=== PATIENT | female | born 1930 | race Caucasian/White ===

== ENCOUNTER 2017-07-08 11:41 | Emergency (ER) | payer OTHER ==
[~2017-07-08] VITALS: Ht 154.9 cm; Wt 66.7 kg
--- NOTE | ~2017-07-08 | EKG ---
[address] [place] [address] ELECTROCARDIOGRAM REPORT Name: MARIAJOSEJOHANNABERTOJOSUE Clemencia Room #: REG [facility]#: [id number] Admission: 07/08/17 Attend Phys: Discharge: Date of : 30 Report #: [id number] THIS REPORT FOR: //name// [facility] ED Test Date: 2017-07-08 Test Time: 11:49:49 Pat Name: JOSUE PEDERSEN Department: Room: Gender: F Zig Zag Stitcher: NATASHA : 1930 Requested By: Tomasa Esetban Order Number: [id number] MD: Chintan Franz Measurements Intervals [place] Rate: 105 P: 60 HI: 186 QRS: 10 QRSD: 95 T: 63 QT: 347 QTc: 459 Interpretive Statements Sinus tachycardia Left atrial enlargement Compared to ECG 06/06/2010 12:21:10 Atrial abnormality now present Sinus rhythm no longer present Myocardial infarct finding no longer present Electronically Signed On 07-08-2017 12:58:32 PORTABLE SAWMILL OPERATOR by Chintan Franz [email or web address] <ELECTRONICALLY SIGNED> By: Chintan Franz MD 07/08/17 1258 1149 1149 Chintan Franz MD /RICK
[~2017-07-08 11:41] MED LIST: ACETAMINOPHEN325 MG PO; ADULT LOW DOSE81 MG PO; ARANESP SC; BAYER BACK & BODY PO; BAYER PLUS 500500 MG PO; CALCIUM ACETAT667 M2 PO; CIPRO250 M1 PO; EPOGEN2000 UNIT/ IJ; HYDROCODON-ACE1 EAC1 PO; KEFLEX500 MG PO; L-THYROXINE PO; LIDOCAINE 4% K1 EACH TP; LIPITOR10 MG PO; LIPITOR20 MG PO; LIPITOR40 MG PO; MAG DELAY64 MG PO; MEGESTROL; MOTION SICKNESS25 M1 PO; NEPHROCAPS SOFT1 CAP PO; NORCO 5-325 TA1 EACH PO; RENAL SOFTGEL1 MG PO; RENALTAB ZN PO; REQUIP0.5 MG PO; SIMVASTATIN20 MG PO; SYNTHROID150 MCG PO; TUMS CHEWA500 MG/11 PO; VITAMIN E400 UNI6 PO; ZYRTEC 10 MG TA10 MG PO; [UNRECOGNIZED DRUG - OTHER]; [UNRECOGNIZED DRUG - OTHER] PO
[2017-07-08 12:33] LABS: HEMOGLOBIN 12.8 gm/dL (12.0-15.0); MCH 32.1 pg (26.0-34.0); MCHC 34.5 g/dL (28.0-37.0); MCV 93.2 fL (80.0-100.0); PLATELET COUNT 245 thou/uL (150-400); RBC 3.97 mil/uL (4.20-5.00); RDW 13.6 % (10.5-14.5); WBC 6.8 thou/uL (4.0-11.0)
[2017-07-08 12:43] LABS: CALCIUM 9.5 mg/dL (8.5-10.1); CREATININE 3.9 mg/dL (0.6-1.0)
[2017-07-08 12:44] LABS: TROPONIN-I 0.07 ng/mL (<0.06)
[2017-07-08 12:50] LABS: ABSOLUTE NEUTROPHILS 5.5 thou/uL (1.4-8.2); PLATELET ESTIMATE NORMAL
[2017-07-08] MEDS ORDERED: ROBITUSSIN100 MG/53 PO (14:25)
[2017-07-08] MEDS ORDERED: PROAIR RESPICL90 MCG INH (14:25)
[2017-07-08] MEDS ORDERED: TESSALON PERLE100 MG PO (14:25)
[2017-07-08 15:15] VITALS: BP 136/74
== END 2017-07-08 15:15 | disposition home or self-care (01) ==
LOC: ER 11:41
PROVIDERS: Emergency Medicine
DX: J06.9 Acute upper respiratory infection, unspecified (principal); E11.22 Type 2 diabetes mellitus with diabetic chronic kidney disease; N18.6 End stage renal disease; E78.5 Hyperlipidemia, unspecified; E03.9 Hypothyroidism, unspecified; N30.10 Interstitial cystitis (chronic) without hematuria; G25.81 Restless legs syndrome; Z99.2 Dependence on renal dialysis; Z90.49 Acquired absence of other specified parts of digestive tract; Z90.89 Acquired absence of other organs; Z86.718 Personal history of other venous thrombosis and embolism; Z86.711 Personal history of pulmonary embolism; Z96.652 Presence of left artificial knee joint

== ENCOUNTER → 2019-05-18 | Outpatient (CLI) | payer OTHER ==
[~2019-05-18] MED LIST changes: +PROAIR RESPICL90 MCG INH; +ROBITUSSIN100 MG/53 PO; +TESSALON PERLE100 MG PO
== END ==
LOC: RAD 09:52
DX: M18.11 Unilateral primary osteoarthritis of first carpometacarpal joint, right hand (principal); M25.831 Other specified joint disorders, right wrist; M11.231 Other chondrocalcinosis, right wrist; I70.0 Atherosclerosis of aorta

== ENCOUNTER 2019-09-21 20:23 | Inpatient (IN) | payer OTHER ==
[~2019-09-21] VITALS: Ht 152.4 cm; Wt 49.9 kg
--- NOTE | ~2019-09-21 | HC ---
[facility] [address] [place] [address] CONSULTATION Name: JOSUE PRECIADO Room #: 215-P ADM IN M.R.#: [id number] Admission: 09/21/19 Attend Phys: Mikey Sánchez MD Discharge: Date of : 30 Report #: [id number] THIS REPORT FOR: cc: Aldo Chaney MD,Sweta Sharma MD, MD ~ CC: Mikey Chaney REASON FOR CONSULTATION: End-stage renal disease. REASON FOR THE PRESENTATION: Chest pain. HISTORY OF PRESENT ILLNESS: This is a very well-known patient to me. She is an 88-year-old end-stage renal disease with advanced dementia. She is maintained on hemodialysis every Saturday, Saturday and Saturday. She presented to the Emergency Room that she has been having chest pain ever since she was on dialysis yesterday. She had major issues with the chest pain even after she went home. Her neighbor was with her and they decided to bring her to the Emergency Room. Vitals were stable, but the patient almost collapsed in the triage and was admitted to be further evaluated. She has all known risk factors for coronary artery disease. She is also known to have diabetes mellitus, DVT and pulmonary embolism in the past. She was reporting some mild chest pain when I saw her this morning. She denies any nausea or vomiting. She denies any prior similar episodes. She is not really sure about the details of her dialysis treatment yesterday. I am being consulted to manage her end-stage renal disease. PAST MEDICAL HISTORY: 1. End-stage renal disease, maintained on hemodialysis. 2. Diabetes mellitus. 3. Hyperlipidemia. 4. Hypothyroidism. 5. Post-AV fistula. 6. Appendectomy. 7. Cholecystectomy. 8. Right breast mass excision. 9. Carotid endarterectomy. 10. Tonsillectomy. 11. Multiple cystoscopies for obstructive uropathy in the past. 12. Pulmonary embolism. 13. Deep venous thrombosis. 14. Left knee replacement. 15. History of peptic ulcer disease. CURRENT HOME MEDICATIONS: 1. Carvedilol. [facility] [address] [place] [address] CONSULTATION Name: JOSUE PRECIADO Room #: 215-P [facility] IN ..#: [id number] Admission: 09/21/19 Attend Phys: Mikey Sánchez MD Discharge: Date of : 30 Report #: [id number] 2. Tramadol. 3. Plavix. ALLERGIES: None. SOCIAL HISTORY: No reported drug or alcohol abuse. REVIEW OF SYSTEMS: CONSTITUTIONAL: Significant for weakness. CARDIOVASCULAR: As per the history of present illness. PULMONARY: No cough or hemoptysis. GASTROINTESTINAL: No nausea or vomiting. GENITOURINARY: She is anuric. MUSCULOSKELETAL: Usual aches and pains for the patient in her age. NEUROLOGICAL: Occasional headaches. PHYSICAL EXAMINATION: GENERAL: The patient was alert, oriented, in no apparent distress when I evaluated her this morning. VITAL SIGNS: Pulse ox was 96, blood pressure was 118/46. Temperature was 36.4, pulse rate was 69. HEAD AND NECK: No jugular venous distention. CHEST: No crackles. CARDIOVASCULAR: No rub detected. ABDOMEN: Soft and nontender. LOWER EXTREMITIES: No edema. LABORATORY DATA: Reviewed. Sodium 130, chloride 95, carbon dioxide 33, BUN 13, creatinine 3.2. White blood cell count is 9.3. Troponins are negative. TSH was significantly elevated at 28.1. Chest x-ray with no acute abnormality. ASSESSMENT, IMPRESSION AND PLAN: 1. End-stage renal disease. 2. Chest pain of unknown source being ruled out for an acute coronary syndrome. 3. Near syncope. 4. Low blood pressure, likely related to aggressive ultrafiltration and decreased oral intake. 5. Uncontrolled thyroid issues. 6. Diabetes mellitus. 7. Advanced dementia. 8. History of deep venous thrombosis and pulmonary embolism. 9. We will arrange for the patient to have her usual hemodialysis every Saturday, Saturday and Saturday. 10. Endocrinology consultation regarding her thyroid issues and diabetes mellitus. 11. Dementia with poor social support and I seriously doubt that the patient is [address] [place] [address] CONSULTATION Name: JOSUE PRECIADO Room #: 215-P [facility] IN M.R.#: [id number] Admission: 09/21/19 Attend Phys: Mikey Sánchez MD Discharge: Date of : 30 Report #: [id number] taking any of her medications and she will need Social Work consultations. 12. Cardiology is following regarding her chest pain. I would rather be on the conservative side given her advanced dementia and comorbid conditions. By: [phone] Sweta Ho MD /nt
[2019-09-21 20:24] VITALS: BP 118/46
[2019-09-21 20:44] LABS: ABSOLUTE NEUTROPHILS 7.4 thou/uL (1.4-8.2); EOSINOPHILS 1.1 % (0.0-3.0); HEMOGLOBIN 11.2 gm/dL (12.0-15.0); LYMPHOCYTES 9.1 % (24.0-44.0); MCH 27.5 pg (26.0-34.0); MCHC 32.1 g/dL (28.0-37.0); MCV 85.5 fL (80.0-100.0); MONOCYTES 8.9 % (1.0-8.0); PLATELET COUNT 420 thou/uL (150-400); POLYS 79.9 % (36.0-66.0); RBC 4.09 mil/uL (4.20-5.00); RDW 18.9 % (10.5-14.5); WBC 9.3 thou/uL (4.0-11.0)
[2019-09-21] MEDS ORDERED: CARVEDILOL12.5 MG PO (20:54)
[2019-09-21] MEDS ORDERED: TRAMADOL 50 MG50 MG PO (20:55)
[2019-09-21] MEDS ORDERED: PLAVIX 75 MG TA75 MG PO (20:56)
[2019-09-21 20:59] LABS: ANION GAP 4 mmol/L (7-16); BUN 13 mg/dL (7-18); CHLORIDE 95 mmol/L (98-107); CO2 33 mmol/L (21-32); CREATININE 3.2 mg/dL (0.6-1.0); GLUCOSE 130 mg/dL (74-106); POTASSIUM 3.6 mmol/L (3.5-5.1); SODIUM 132 mmol/L (136-145)
[2019-09-21 21:00] LABS: TROPONIN-I <0.06 ng/mL (<0.06)
[2019-09-21] MEDS ORDERED: PERCOCET 5-3251 EACH PO (21:00)
[2019-09-22] VITALS (8 sets, daily range): BP systolic 114–155; BP diastolic 35–57
[2019-09-22] MEDS ORDERED: ZOCOR 20 MG TAB20 M1 PO (01:13)
[2019-09-22] MEDS ORDERED: SYNTHROID200 MCG PO (04:09)
[2019-09-22 05:00] LABS: CHOLESTEROL 154 mg/dL (<200); HDL CHOLESTEROL 48 mg/dL (>40); LDL CHOLESTEROL 84 mg/dL (<100); TC:HDL 3.2 Ratio (Not establshd); TRIGLYCERIDE 114 mg/dL (<150); VLDL 23 mg/dL (<40)
[2019-09-22 05:01] LABS: SERUM ASSESSMENT Clear
--- NOTE | 2019-09-22 05:49 | NUR ---
RECEIVED REPORT FROM [facility] ED RN.PATIENT ARRIVED TO ROOM 215 AROUND 0100 AM.PATIENT A/O X 4.DENIES PAIN AND SOB.PATIENT CLAIMED THAT SHE MOVES AROUND AT HOME WITH A WALKER.PATIENT IS OLIGURIC.NECROTIC TOE NOTED ON HER LEFT FOOT.PICTURE IN THE CHART.MONITOR SHOWS SINUS RHYTHM.POC CONTINUED.
--- NOTE | 2019-09-22 08:19 | NUR ---
ASSESSMENT: CM REVIEWED CHART AND MET WITH PATIENT AT THE BEDSIDE. PT LIVES AT HER HOME AND HER TERE RIOS IS CURRENTLY STAYING WITH HER. PT REPORTS SHE HAS 1-2 STEPS TO ENTER THE HOME. PT REPORTS THAT SHE AMBULATES AT TIMES USING HER CANE AND OTHER TIMES USING HER WALKER. PT REPORTS SHE IS VERY INDEPENDENT FOR HER AGE. PT IS INDEPENDENT WITH ADLS. PT STATES SHE GOES TO [facility] M[facility] 0530AM CHAIR TIME. CM CONTACTED [facility] TO NOTIFY THEM. THEY REQUEST D/C PAPERWORK AND FLOWSHEETS BE FAXED TO THEM AT [phone] AT DISCHARGE. CM SPOKE WITH BLANCA CARRANZA AND SHE REPORTS THAT PATIENT NORMALLY DRIVES HERSELF TO AND FROM DIALYSIS. PT HAS HAD HH IN THE PAST BUT BLANCA STATES THEY DISCHARGE HER BECAUSE SHE DOES NOT STAY HOME. CM DISCUSSED ROLE. PT DOES NOT ANTICIPATE HAVING ANY NEEDS AT DISCHARGE. CM WILL CONTINUE TO FOLLOW TO ASSIST NEEDED.
--- NOTE | 2019-09-22 08:53 | EKG ---
[facility] [address] [address] ELECTROCARDIOGRAM REPORT Name: JOSUE PRECIADO Room #: 215-P ADM IN M.R.#: [id number] Admission: 09/21/19 Attend Phys: Mikey Sánchez MD Discharge: Date of : 30 Report #: [id number] THIS REPORT FOR: cc: Aldo Chaney MD, Michael B. MD Lundgren,Roman Mendez MD [facility] ~ THIS REPORT FOR: //name// [facility] ED Test Date: 2019-09-21 Test Time: 20:29:35 Pat Name: JOSUE PRECIADO Department: Room: 215 Gender: F Grinder Setup Operator: : 1930 Requested By: Pineda Amanda Order Number: [id number] MD: Roman Lee Measurements Intervals [place] Rate: 62 P: 58 VA: 165 QRS: 4 QRSD: 100 T: 84 QT: 440 QTc: 447 Interpretive Statements Sinus rhythm Poor R wave progression Compared to ECG 07/08/2017 11:49:49 Sinus tachycardia no longer present Electronically Signed On 09-22-2019 8:51:53 CDT by Romna Lee [email or web address] <ELECTRONICALLY SIGNED> By: Roman Lee MD, [facility] 09/22/19 0851 28 28 Roman Lee MD, [facility] /EPI
--- NOTE | 2019-09-22 08:58 | EKG ---
[facility] [address] [address] ELECTROCARDIOGRAM REPORT Name: JOSUE PRECIADO Room #: 215-P ADM IN M.R.#: [id number] Admission: 09/21/19 Attend Phys: Mikey Sánchez MD Discharge: Date of : 30 Report #: [id number] THIS REPORT FOR: cc: Aldo Chaney MD, Michael B. MD Lundgren,Roman Mendez MD [facility] THIS REPORT FOR: //name// [facility] Test Date: 2019-09-22 Test Time: 08:14:11 Pat Name: JOSUE PRECIADO Department: Room: 215 P Gender: F Bleach Analyst: Pierre AGOSTO : 1930 Requested By: Yanelis Yee Order Number: [id number] MD: Roman Lee Measurements Intervals [place] Rate: 60 P: 75 WV: 173 QRS: 15 QRSD: 92 T: 85 QT: 437 QTc: 437 Interpretive Statements Sinus rhythm No significant abnormality Compared to ECG 07/08/2017 11:49:49 No significant changes Electronically Signed On 09-22-2019 8:57:30 CDT by Roman Lee [email or web address] <ELECTRONICALLY SIGNED> By: Roman Lee MD, FACC 09/22/19 0857 3 3 Roman Lee MD, [facility] /EPI
--- NOTE | 2019-09-22 11:00 | 2DMMODE ---
[facility] [place] [address] 2 D/M-MODE ECHOCARDIOGRAM Name: JOSUE PRECIADO Room #: 215-P ADM IN M.R.#: [id number] Admission: 09/21/19 Attend Phys: Mikey Sánchez MD Discharge: Date of : 30 Report #: [id number] THIS REPORT FOR: cc: Aldo Chaney MD, Michael B. MD Lundgren, Craig H. MD [facility] ~ APPROVED REPORT Study performed: 09/22/2019 09:16:31 EXAM: Comprehensive 2D, Doppler, and color-flow Echocardiogram Patient Location: Bedside Room #: 215 Status: routine BSA: 1.45 HR: 63 bpm BP: 115/35 mmHg Rhythm: NSR Other Information Study Quality: Good Indications Aortic Valve Disease Mitral Valve Disease Diabetes Chest Pain Hypertension/HDD 2D Dimensions RVDd: 32.49 mm IVSd: 12.78 (7-11mm) LVOT Diam: 17.94 (18-24mm) LVDd: 37.58 mm PWd: 12.61 (7-11mm) Ascending Ao: 25.36 (22-36mm) LVDs: 26.39 (25-40mm) Aortic Root: 24.85 mm IVC: 17.00 mm Volumes Left Atrial Volume (Systole) Single Plane 4CH: 156.29 mL Single Plane 2CH: 135.41 mL LA ESV Index: 110.00 mL/m2 Aortic Valve AoV Peak Matty.: 2.67 m/s [facility] [address] [place] [address] 2 D/M-MODE ECHOCARDIOGRAM Name: JOSUE PRECIADO Room #: 215-P [facility] IN ..#: [id number] Admission: 09/21/19 Attend Phys: Loulou Eubanks Discharge: Date of : 30 Report #: [id number] Peak Gr.: 28.54 mmHg LVOT Max P.26 mmHg AO Mean Gr.: 16.10 mmHg LVOT Mean P.29 mmHg AO V2 Mean: 1.93 m/s LVOT Max V: 1.15 m/s AO V2 VTI: 66.89 cm LVOT Mean V: 0.85 m/s TONYA (VTI): 1.23 cm2 LVOT V1 VTI: 32.50 cm TONYA Vmax: 1.08 cm2 SV (LVOT): 82.11 mL Mitral Valve MV Peak Gr.: 26.67 mmHg MV Mean Gr.: 13.39 mmHg E/A Ratio: 1.1 MV Decel. Time: 644.52 ms MV E Max Matty.: 2.32 m/s MV A Matty.: 2.06 m/s MV Max Matty.: 2.58 m/s MV Mean Matty.: 1.76 m/s MV VTI: 1007.39 mm MVA VTI: 81.51 mm2 MV PHT: 186.91 ms MVA (PHT): 1.43 cm2 IVRT: 106.11 ms Pulmonary Valve PV Peak Matty.: 1.01 m/s PV Peak Gr.: 4.10 mmHg Tricuspid Valve TR Peak Matty.: 3.35 m/s TR Peak Gr.: 44.86 mmHg PA Pressure: 55.00 mmHg Left Ventricle The left ventricle is normal size. There is normal LV segmental wall motion. Mild concentric left ventricular hypertrophy. Left ventricular systolic function is hyperdynamic. LVEF is 65-70%. The left ventricular diastolic function is abnormal. Right Ventricle The right ventricle is normal size. The right ventricular systolic function is normal. Atria Left atrium is dilated. Right atrium is dilated. Aortic Valve Aortic valve is calcified. No aortic regurgitation is present. Moderate aortic stenosis. Calculated aortic valve area is 1.1 cm2 [place] [address] 2 D/M-MODE ECHOCARDIOGRAM Name: JOSUE PRECIADO Room #: 215-P [facility] IN [facility]#: [id number] Admission: 09/21/19 Attend Phys: Loulou Eubanks Discharge: Date of : 30 Report #: [id number] with maximum pressure gradient of 29 mmHg and mean pressure gradient of 15 mmHg. Mitral Valve There is mitral annular calcification. Mitral valve leaflets are calcified. Mitral valve leaflets have restricted excursion. Mild mitral regurgitation. Severe mitral stenosis. Calculated mitral valve area is 1.0 cm2 with maximum pressure gradient of 30 mmHg and mean pressure gradient of 15 mmHg. Tricuspid Valve The tricuspid valve is normal in structure. There is mild tricuspid regurgitation. Estimated PAP 50 mmHg. There is moderate pulmonary hypertension. Pulmonic Valve The pulmonary valve is normal in structure. There is no pulmonic valvular regurgitation. Great Vessels The aortic root is normal in size. IVC is normal in size and collapses <50% with inspiration. Pericardium There is no pericardial effusion. <Conclusion> Left ventricular systolic function is hyperdynamic. There is normal LV segmental wall motion. LVEF is 65-70%. Left atrium is dilated. Aortic valve is calcified. Moderate aortic stenosis. Calculated aortic valve area is 1.1 cm2 with maximum pressure gradient of 29 mmHg and mean pressure gradient of 15 mmHg. There is mitral annular calcification. Mitral valve leaflets are calcified with restricted excursion. Severe mitral stenosis. Calculated mitral valve area is 1.0 cm2 with maximum pressure gradient of 30 mmHg and mean pressure gradient of 15 mmHg. There is mild tricuspid regurgitation. Estimated pulmonary artery pressure of 50 mmHg. There is no pericardial effusion. <ELECTRONICALLY SIGNED> By: Roman Lee MD, FACC 09/22/19 1058 1058 1058 Roman Lee MD, FACC /INF
--- NOTE | 2019-09-22 18:03 | NUR ---
Assumed pt care at 11am.Pt up in chair resting without c/o.Assessment completed.vss but dbp low at dinner time and coreg held.Assisted pt with tray setup at all meals.Fair appetite noted.Pt will dialyzed in am.No verbal c/o. Will continue to monitor.
[2019-09-23 00:07] LABS: GLYCOHEMOGLOBIN (HGB A1C) 5.1 % (4.8-5.6)
[2019-09-23 04:45] VITALS: BP 152/52
[2019-09-23 06:33] LABS: ANION GAP 7 mmol/L (7-16); BUN 28 mg/dL (7-18); CALCIUM 8.3 mg/dL (8.5-10.1); CHLORIDE 95 mmol/L (98-107); CO2 31 mmol/L (21-32); GLUCOSE 71 mg/dL (74-106); POTASSIUM 3.4 mmol/L (3.5-5.1); SODIUM 133 mmol/L (136-145); TROPONIN-I <0.06 ng/mL (<0.06)
[2019-09-23 06:37] LABS: CREATININE 4.9 mg/dL (0.6-1.0)
--- NOTE | 2019-09-23 06:45 | HC ---
[facility] [address] [place] [address] CONSULTATION Name: JOSUE PRECIADO Room #: 215-P ADM IN M.R.#: [id number] Admission: 09/21/19 Attend Phys: Mikey Sánchez MD Discharge: Date of : 30 Report #: [id number] THIS REPORT FOR: cc: Aldo Chaney MD,Maximilian Stout MD, MD ~ CC: Mikey Chaney DATE OF SERVICE: 09/22/2019 ENDOCRINE CONSULTATION NOTE CONSULTING PHYSICIAN: Dr. Kim. REASON FOR CONSULTATION: Severe hypothyroidism. HISTORY OF PRESENT ILLNESS: This is an 88-year-old female patient whose medical background is significant for multiple medical issues including longstanding hypothyroidism, type 2 diabetes mellitus, hypertension, hyperlipidemia, end-stage renal disease requiring hemodialysis as well as advanced dementia. The patient was admitted yesterday with complaints of chest pain that seemed to have progressed fast prior to admission. Subsequently, the patient was admitted for further care and monitoring. Again, the patient is known to have hypothyroidism and when questioned about that, she indicated that she has been for many years and that she is maintained on levothyroxine that she takes daily. She was not able to specify the dose, but her records show that she is supposed to be on levothyroxine 150 mcg daily. The patient indicated that there were a lot of inconsistencies in her medication intake over the past few months and that she believes her levothyroxine medicine was not being taking consistently. She has felt fatigued and tired lately, but was not particularly somnolent and has not noted significant body weight changes. The patient's records indicate that she has type 2 diabetes mellitus, but she denies that and having reviewed her outpatient medications and does not appear that she is on any known antidiabetic agents. The patient is known to have hypertension and is maintained on carvedilol 12.5 mg b.i.d. She is also hyperlipidemic and is maintained on simvastatin 20 mg at bedtime. REVIEW OF SYSTEMS: CONSTITUTIONAL: Fatigue, tiredness, but no fever or chills or significant body weight changes. HEENT: Negative for sore throat, sinus pain, ear drainage. PULMONARY: Negative for cough or hemoptysis. Noted for occasional dyspnea on [facility] [address] [address] CONSULTATION Name: JOSUE PRECIADO Room #: 215-P [facility] IN ..#: [id number] Admission: 09/21/19 Attend Phys: Mikey Sánchez MD Discharge: Date of : 30 Report #: [id number] exertion or shortness of breath. GASTROINTESTINAL: Occasional abdominal discomfort, distention, nausea, but no vomiting. NEUROLOGY: Negative for loss of consciousness, severe frequent headaches or peripheral numbness. PSYCHIATRIC: Baseline dementia. Negative for hallucinations, delusions. Otherwise, review of systems noncontributory other than those mentioned in HPI. PAST MEDICAL HISTORY: 1. Hypothyroidism. 2. End-stage renal disease, on hemodialysis 3 times a week. She has been on dialysis for several years. 3. Diet-controlled type 2 diabetes mellitus. 4. Dyslipidemia. 5. Chronic interstitial cystitis. 6. Carotid arterial disease. 7. History of DVT in the left leg in 2003. 8. History of PE in 2002. 9. Restless leg syndrome. 10. Osteoarthritis. 11. Cataracts. 12. Peptic ulcer disease. PAST SURGICAL HISTORY: Noted for: 1. Tonsillectomy. 2. Carotid endarterectomies bilaterally. 3. AV fistula placement in the right upper extremity. 4. Left knee replacement. 5. Cataract surgery. 6. Eye laser surgery. OUTPATIENT MEDICATIONS: Include: 1. Simvastatin 20 mg daily. 2. Carvedilol 12.5 mg b.i.d. 3. Tramadol ____ mg q.6 hours p.r.n. 4. Plavix 75 mg daily. 5. Percocet 5/325 mg tablet b.i.d. p.r.n. 6. Zyrtec 10 mg daily. 7. Meclizine 25 mg p.r.n. motion sickness. 8. Simvastatin 20 mg at bedtime. 9. ReQuip 0.5 mg at bedtime. 10. Levothyroxine 150 mcg daily. 11. Calcium acetate 667 mg daily. ALLERGIES: No known drug allergies. [address] [address] CONSULTATION Name: JOSUE PRECIADO Room #: 215-P [facility] IN M.R.#: [id number] Admission: 09/21/19 Attend Phys: Mikey Sánchez MD Discharge: Date of : 30 Report #: [id number] FAMILY HISTORY: Noncontributory. SOCIAL HISTORY: The patient denies use of tobacco, alcohol or illicit drugs. She lives by herself and her niece visits with her closely. PHYSICAL EXAMINATION: GENERAL: Pleasant female patient who is not in apparent pain or distress. She is sitting upright in her reclining chair, seeming comfortable, not in apparent distress. VITAL SIGNS: Blood pressure is 114/37 mmHg, heart rate is 58 beats per minute, respirations 15 per minute, temperature 36.3 degrees. CONSTITUTIONAL: The patient is sitting upright, appears comfortable, not in apparent distress. HEENT: Anicteric sclerae. Intact extraocular motions. NECK: Supple, no JVD, no thyromegaly. CHEST: Noted for moderate air entry bilaterally with scattered rales. No wheezes or crackles. HEART: Regular rate and rhythm without murmurs or gallops. ABDOMEN: Soft, lax. No guarding. Active bowel sounds. EXTREMITIES: Lower extremity exam is noted for trace ankle edema, necrotic changes are noted over the second left toe. Pedal pulses are not appreciated. Sensation to light touch is moderately diminished. NEUROLOGIC: Awake, alert and oriented to time, place and person. The remainder of her examination is nonfocal other than for sensory deficits over the lower extremities. PSYCHIATRIC: Pleasant, interactive. Normal mood and affect. LABORATORY RESULTS: Blood glucose on arrival was 65, went to 106 and then 103 mg/dL. Otherwise, sodium 132, potassium 3.6, chloride 95, CO2 of 33, anion gap 4. BUN 13, creatinine 3.2. She has been as high as 9.9 in 2009. AST 18, total bilirubin 0.2, calcium 9.0, phosphorus 3.7, magnesium 2.1, alkaline phosphatase 104, ALT 19, total protein 6.8, albumin 2.7, EGFR 14. Troponin negative. Total cholesterol 154, triglycerides 114, HDL 48, LDL 84. White blood count 9.3, hemoglobin 11.2, hematocrit 35, platelets 420. Hemoglobin A1c is pending. TSH is 28.178. ASSESSMENT AND PLAN: 1. Hypothyroidism. This is a longstanding issue. The patient admittedly has had significant therapeutic gaps over the past few months. This complicates the mission of better identifying her specific therapeutic needs. I would like to get a free T4 level to better assess her current standing and her specific therapeutic needs. Moreover, I would adopt caution while approaching this patient and the sense of introducing a low dose of levothyroxine requirements that can be adjusted slowly to her needs going forward. That said, and given her low body mass, I would start with 100 mcg daily while we await the free T4 levels. I noted that she had already received 1 bolus of intravenous [facility] [address] [place] [address] CONSULTATION Name: JOSUE PRECIADO Room #: 215-[facility] IN ..#: [id number] Admission: 09/21/19 Attend Phys: Mikey Sánchez MD Discharge: Date of : 30 Report #: [id number] levothyroxine of 200 mcg one time earlier today. This should be plenty for a loading dose. The patient was counseled about the importance of sustaining a consistent intake of levothyroxine and periodically monitoring her levels to ensure the best outcome possible which she seemed to understand well. 2. Type 2 diabetes mellitus. The patient is reported to have type 2 diabetes mellitus that is diet controlled. She is not currently on active antidiabetic therapy. Blood glucose values during her hospital stay have so far been under good control. Hemoglobin A1c has been ordered and is pending or should assist in developing a better understanding of her overall level of control as of recently. 3. Hypertension. The patient's level of blood pressure control is adequate. She is to continue the same regimen. 4. Hyperlipidemia. The patient is maintained on simvastatin therapy in the outpatient setting. I will defer the resumption of this regimen to her primary medicine team once she is deemed clinically stable. I have reviewed the clinical care notes, laboratory data, outpatient clinical records, and other pertinent information to this patient's care for over 35 minutes. I appreciate this consultation by Dr. Kim. <ELECTRONICALLY SIGNED> By: Maximilian Garcia MD 09/23/19 0645 1400 1512 Maximilian Garcia MD /nt
[2019-09-23 08:02] VITALS: BP 129/50
--- NOTE | 2019-09-23 08:44 | NUR ---
ASSESSMENT CHARTED, MEDS GIVEN CHARTED. PATIENT SITTING IN CHAIR DURING START OF SHIFT, TRANSFERED TO BED DURING SHIFT. C/O PAIN IN LEFT FOOT PRIMARILY THE SECOND TOE WHICH IS SCHEDULED FOR AMPUTATION ON 09/28 OUT PATIENT. PATIENT DID NOT WANT TYLENOL FOR PAIN BUT REQUESTED NAPROXEN. PATIENT IS SCHEDULED FOR 4 HOURS OF DIALYSIS THIS MORNING THEN CONSULT FOR ENDOCRINE DUE TO THYROID LEVELS. FALL PRECAUTIONS IN PLACE.
[2019-09-23] MEDS ORDERED: TRAMADOL 50 MG50 MG PO (11:39)
[2019-09-23 12:04] VITALS: BP 129/50
[2019-09-23] MEDS ORDERED: SYNTHROID100 MC1 PO (12:39)
--- NOTE | 2019-09-23 13:16 | NUR ---
on-going assessment: PT HAS ORDERS TO DISCHARGE HOME WITH HH TODAY AFTER DIALYSIS. JAVI SPOKE WITH PATIENTS TERE RIOS WHO SHE LIVES WITH AND REFERRAL WAS SENT TO [facility]. [facility] STATES THEY CAN ACCEPT PATIENT AND JUST NEED DISCHARGE ORDERS. JAVI SPOKE WITH AUTHORIZATION REPRESENTATIVE WHO IS GOING TO SEND THE ORDERS. JAVI NOTIFIED JULIA DE LEON OF DISCHARGE TODAY.
--- NOTE | 2019-09-23 13:19 | NUR ---
PT DISCHARGING TODAY TO HOME WITH [facility] SPOKE WITH LUDWIG IN INTAKE SHE RECEIVED ORDERS AND WILL NOTIFY PT TIME OF VISITS.
--- NOTE | 2019-09-23 15:42 | NUR ---
ASSESSMENT CHARTED. PT ALERT AND ORIENTED. HAD DIALYSIS THIS AM. ORDERS NGIVEN TO DISCHARGE PT TO HOME WITH HH. DISCHARGE INSTRUCTIONS GIVEN TO PT. PT VERBERLISED UNDERSTANDING. PT LEFT THE FACILITY ACCOMPANIED BY THE NIECE.
== END 2019-09-23 15:45 | disposition short-term general hospital (02) | DRG 306 ==
LOC: ER 20:23 → EROBS 23:25 → 2N 23:25
PROVIDERS: Emergency Medicine; Nurse Practitioner Family; ADMIT Hospitalist
PROC: 5A1D70Z Performance of Urinary Filtration, Intermittent, Less than 6 Hours Per Day (ICD-10-PCS; principal; 2019-09-23)
DX: I05.0 Rheumatic mitral stenosis (principal); N18.6 End stage renal disease; I96 Gangrene, not elsewhere classified; E87.1 Hypo-osmolality and hyponatremia; E11.52 Type 2 diabetes mellitus with diabetic peripheral angiopathy with gangrene; I12.0 Hypertensive chronic kidney disease with stage 5 chronic kidney disease or end stage renal disease; E86.0 Dehydration; I35.0 Nonrheumatic aortic (valve) stenosis; E11.22 Type 2 diabetes mellitus with diabetic chronic kidney disease; E78.5 Hyperlipidemia, unspecified; E03.9 Hypothyroidism, unspecified; G25.81 Restless legs syndrome; Z96.652 Presence of left artificial knee joint; F03.90 Unspecified dementia, unspecified severity, without behavioral disturbance, psychotic disturbance, mood disturbance, and anxiety; I05.9 Rheumatic mitral valve disease, unspecified; I65.23 Occlusion and stenosis of bilateral carotid arteries; E86.9 Volume depletion, unspecified; E87.8 Other disorders of electrolyte and fluid balance, not elsewhere classified; G47.00 Insomnia, unspecified; Z90.49 Acquired absence of other specified parts of digestive tract; Z86.718 Personal history of other venous thrombosis and embolism; Z86.711 Personal history of pulmonary embolism; Z98.42 Cataract extraction status, left eye; Z98.41 Cataract extraction status, right eye; Z87.11 Personal history of peptic ulcer disease; Z79.82 Long term (current) use of aspirin; Z79.899 Other long term (current) drug therapy; Z99.2 Dependence on renal dialysis
CPT/HCPCS: 10081; 32100